=== PATIENT | female | born 1980 | race Caucasian/White ===

== ENCOUNTER 2016-07-23 15:42 | Emergency (ER) | payer OTHER ==
[2016-07-23 17:22] LABS: HEMOGLOBIN 14.8 gm/dl (12.3-15.3); RED BLOOD COUNT 5.28 M/UL (4.00-5.10); WHITE BLOOD COUNT 14.4 K/UL (4.5-11.0)
[2016-07-23 17:41] LABS: BUN/CREATININE RATIO 21 (0-10)
[2016-10-05] MEDS ORDERED: FLOVENT DISKUS50 MCG INH (07:51)
[2016-10-05] MEDS ORDERED: GLUCOTROL 10 MG10 MG PO (07:52)
[2016-10-05] MEDS ORDERED: IBUPROFEN400 MG PO (07:52)
[2016-10-05] MEDS ORDERED: NORCO 10-325 T1 EACH PO ×2 (07:52→13:47)
[2016-10-05] MEDS ORDERED: SINGULAIR10 MG PO (07:53)
[2016-10-05] MEDS ORDERED: VENTOLIN HFA 66.7 GM INH (07:54)
[2016-10-05] MEDS ORDERED: ZANTAC150 MG PO (07:55)
[2016-10-05] MEDS ORDERED: ZYRTEC10 MG PO (07:55)
== END 2016-07-23 20:25 | disposition home or self-care (01) ==
LOC: ER1 15:42
PROVIDERS: Emergency Medicine
DX: R10.11 Right upper quadrant pain (principal); R10.32 Left lower quadrant pain; E11.65 Type 2 diabetes mellitus with hyperglycemia; R19.7 Diarrhea, unspecified; R11.2 Nausea with vomiting, unspecified; R80.9 Proteinuria, unspecified; K76.0 Fatty (change of) liver, not elsewhere classified
CPT/HCPCS: 36415; 76705; 80053; 81001; 83690; 84703; 85025; 87086; 96361; 96374; 96375; 99284; J1200; J2765; J7030; J7050; Q9962

== ENCOUNTER 2016-07-27 10:40 | Emergency (ER) | payer OTHER ==
[2016-10-05] MEDS ORDERED: FLOVENT DISKUS50 MCG INH (07:51)
[2016-10-05] MEDS ORDERED: IBUPROFEN400 MG PO (07:52)
[2016-10-05] MEDS ORDERED: NORCO 10-325 T1 EACH PO ×2 (07:52→13:47)
[2016-10-05] MEDS ORDERED: GLUCOTROL 10 MG10 MG PO (07:52)
[2016-10-05] MEDS ORDERED: SINGULAIR10 MG PO (07:53)
[2016-10-05] MEDS ORDERED: VENTOLIN HFA 66.7 GM INH (07:54)
[2016-10-05] MEDS ORDERED: ZYRTEC10 MG PO (07:55)
[2016-10-05] MEDS ORDERED: ZANTAC150 MG PO (07:55)
== END 2016-07-27 13:30 | disposition home or self-care (01) ==
LOC: ER1 10:40
DX: S16.1XXA Strain of muscle, fascia and tendon at neck level, initial encounter (principal); E11.9 Type 2 diabetes mellitus without complications; J45.909 Unspecified asthma, uncomplicated; Z88.6 Allergy status to analgesic agent; Z91.040 Latex allergy status; V44.5XXA Car driver injured in collision with heavy transport vehicle or bus in traffic accident, initial encounter; Y93.89 Activity, other specified; Y92.410 Unspecified street and highway as the place of occurrence of the external cause; Z79.84 Long term (current) use of oral hypoglycemic drugs; Z79.899 Other long term (current) drug therapy
CPT/HCPCS: 70450; 72125; 73030; 99284

== ENCOUNTER 2016-07-30 20:37 | Emergency (ER) | payer OTHER ==
[2016-10-05] MEDS ORDERED: FLOVENT DISKUS50 MCG INH (07:51)
[2016-10-05] MEDS ORDERED: NORCO 10-325 T1 EACH PO ×2 (07:52→13:47)
[2016-10-05] MEDS ORDERED: IBUPROFEN400 MG PO (07:52)
[2016-10-05] MEDS ORDERED: GLUCOTROL 10 MG10 MG PO (07:52)
[2016-10-05] MEDS ORDERED: SINGULAIR10 MG PO (07:53)
[2016-10-05] MEDS ORDERED: VENTOLIN HFA 66.7 GM INH (07:54)
[2016-10-05] MEDS ORDERED: ZYRTEC10 MG PO (07:55)
[2016-10-05] MEDS ORDERED: ZANTAC150 MG PO (07:55)
== END 2016-07-30 22:15 | disposition home or self-care (01) ==
LOC: ER1 20:37
DX: S16.1XXA Strain of muscle, fascia and tendon at neck level, initial encounter (principal); S29.012A Strain of muscle and tendon of back wall of thorax, initial encounter; E11.9 Type 2 diabetes mellitus without complications; J45.909 Unspecified asthma, uncomplicated; G89.29 Other chronic pain; Z88.6 Allergy status to analgesic agent; Z91.040 Latex allergy status; Z79.891 Long term (current) use of opiate analgesic; V43.62XA Car passenger injured in collision with other type car in traffic accident, initial encounter; Y92.410 Unspecified street and highway as the place of occurrence of the external cause; Z79.84 Long term (current) use of oral hypoglycemic drugs; Z79.899 Other long term (current) drug therapy
CPT/HCPCS: 72040; 72072; 96372; 99284; J1885

== ENCOUNTER → 2016-08-20 | Outpatient (CLI) | payer OTHER ==
[~2016-08-20] MED LIST: FLOVENT DISKUS50 MCG INH; GLUCOTROL 10 MG10 MG PO; IBUPROFEN400 MG PO; NORCO 10-325 T1 EACH PO; SINGULAIR10 MG PO; VENTOLIN HFA 66.7 GM INH; ZANTAC150 MG PO; ZYRTEC10 MG PO
== END ==
LOC: NM 07-27 10:30
DX: R11.2 Nausea with vomiting, unspecified (principal); R14.0 Abdominal distension (gaseous); R93.2 Abnormal findings on diagnostic imaging of liver and biliary tract
CPT/HCPCS: 78227; A9537; J2805

== ENCOUNTER → 2016-10-05 | Day surgery (SDC) | payer OTHER ==
[~2016-10-05] VITALS: Ht 170.2 cm; Wt 113.4 kg
== END | disposition home or self-care (01) ==
LOC: OR 06:53
PROVIDERS: Surgery
PROC: 0FT44ZZ Resection of Gallbladder, Percutaneous Endoscopic Approach (ICD-10-PCS; principal; 2016-10-05 08:45)
DX: K81.1 Chronic cholecystitis (principal); E66.01 Morbid (severe) obesity due to excess calories; K21.9 Gastro-esophageal reflux disease without esophagitis; E11.9 Type 2 diabetes mellitus without complications; J45.909 Unspecified asthma, uncomplicated; M19.90 Unspecified osteoarthritis, unspecified site; G89.29 Other chronic pain; M54.9 Dorsalgia, unspecified; F41.9 Anxiety disorder, unspecified; Z68.41 Body mass index [BMI] 40.0-44.9, adult; Z86.010 Personal history of colon polyps; Z82.49 Family history of ischemic heart disease and other diseases of the circulatory system; Z88.8 Allergy status to other drugs, medicaments and biological substances; Z91.041 Radiographic dye allergy status; Z79.1 Long term (current) use of non-steroidal anti-inflammatories (NSAID); Z79.899 Other long term (current) drug therapy; Z98.890 Other specified postprocedural states
CPT/HCPCS: 82962; 84703; J0295; J1100; J1815; J2250; J2405; J2710; J2765; J3010; J7030; J7050; J7120

== ENCOUNTER → 2020-05-16 | Outpatient (CLI) | payer OTHER ==
[~2020-05-16] MED LIST changes: +ALDACTONE50 MG PO; +ALLERGY SHOT INJ; +ARAVA20 MG PO; +BASAGLAR K100 UNIT/1 SQ; +BENADRYL ALLERG25 MG PO; +BENTYL 20MG TAB20 MG PO; +BPM-DM-PHEN SY473 ML PO; +BREO ELLIPTA 21 EACH INH; +BUTALB-ACETAMI1 EAC1 PO; +FEOSOL325 MG PO; +FLUCONAZOLE150 MG PO; +FOLIC ACID 1 MG1 MG PO; +HUMALIN R SC; +IBU800 MG PO; +INSULIN LISPRO SQ; +KEFLEX500 MG PO; +LISINOPRIL10 MG PO; +LODINE CAP 300300 MG PO; +METHOTREXATE2.5 MG PO; +NASONEX17 GM; +NIACIN500 M1 PO; +NORFLEX 100 MG100 MG PO; +PEPCID40 MG PO; +PHENERGAN 12.12.5 M1 PO; +PRECOSE100 MG PO; +PREDNISONE 10 M10 MG PO; +PREDNISONE 50 M50 MG PO; +PREDNISONE5 MG PO; +PROGESTERONE200 MG PO; +PROTONIX40 MG PO; +ROBITUSSIN AC480 ML PO; +SYNTHROID75 MCG PO; +TESSALON PERLE100 MG PO; +TORADOL 10 MG T10 MG PO; +VIBRAMYCIN100 MG PO; +XYZAL5 MG PO; +ZANAFLEX4 M1 PO; +ZOFRAN ODT 4 MG4 MG SL; +ZOFRAN4 MG PO
== END ==
LOC: KOH-I 14:48
DX: M25.561 Pain in right knee (principal); G89.29 Other chronic pain; M25.512 Pain in left shoulder; M17.11 Unilateral primary osteoarthritis, right knee
CPT/HCPCS: 73030; 73562

== ENCOUNTER → 2020-08-26 | Outpatient (CLI) | payer OTHER | LOC: KOH-I 11:05 | DX: M79.671 Pain in right foot (principal); Z98.890 Other specified postprocedural states | CPT/HCPCS: 73630 ==

== ENCOUNTER → 2020-09-09 | Outpatient (CLI) | payer OTHER | LOC: KOH-I 10:28 | DX: T84.84XA Pain due to internal orthopedic prosthetic devices, implants and grafts, initial encounter (principal); M77.41 Metatarsalgia, right foot | CPT/HCPCS: 73700 ==

== ENCOUNTER → 2020-11-26 | Outpatient (CLI) | payer OTHER | LOC: HEART 5 14:19 | DX: R09.02 Hypoxemia (principal) | CPT/HCPCS: 71046; 94010 ==

== ENCOUNTER → 2020-11-27 | Outpatient (CLI) | payer OTHER | LOC: SLEEP 14:47 | DX: G47.30 Sleep apnea, unspecified (principal) | CPT/HCPCS: 95810 ==

== ENCOUNTER → 2020-11-27 | Outpatient (CLI) | payer OTHER | LOC: RT 11:18 → LAB 11:18 | DX: R09.02 Hypoxemia (principal) | CPT/HCPCS: 36600; 82803 ==

== ENCOUNTER → 2020-12-03 | Outpatient (CLI) | payer OTHER | LOC: KOH-I 10:00 | DX: Z86.16 Personal history of COVID-19 (principal); R91.8 Other nonspecific abnormal finding of lung field | CPT/HCPCS: 71250 ==

== ENCOUNTER → 2021-02-02 | Outpatient (CLI) | payer OTHER | LOC: KOH-I 10:30 | DX: M79.604 Pain in right leg (principal) | CPT/HCPCS: 93971 ==

== ENCOUNTER → 2021-04-10 | Outpatient (CLI) | payer OTHER | LOC: KOH-I 09:43 | DX: M79.671 Pain in right foot (principal) | CPT/HCPCS: 73630 ==

== ENCOUNTER → 2021-05-27 | Outpatient (CLI) | payer OTHER | LOC: SLEEP 12:57 | DX: G47.33 Obstructive sleep apnea (adult) (pediatric) (principal); G47.10 Hypersomnia, unspecified | CPT/HCPCS: 95811 ==

== ENCOUNTER → 2021-09-07 | Outpatient (CLI) | payer OTHER ==
[~2021-09-07] MED LIST changes: +CEPHALEXIN500 M1 PO; +DIFLUCAN150 MG PO
== END ==
LOC: KOH-I 09:27
DX: M79.671 Pain in right foot (principal)
CPT/HCPCS: 73630

== ENCOUNTER 2021-09-10 17:59 | Emergency (ER) | payer OTHER ==
[~2021-09-10 17:59] MED LIST changes: -CEPHALEXIN500 M1 PO; -DIFLUCAN150 MG PO
[2021-09-10 19:37] LABS: HEMOGLOBIN 14.3 gm/dl (12.3-15.3); RED BLOOD COUNT 4.64 M/UL (4.00-5.10); WHITE BLOOD COUNT 9.2 K/UL (4.5-11.0)
[2021-09-10 20:05] LABS: BUN/CREATININE RATIO 19 (0-10)
[2021-09-10] MEDS ORDERED: CEPHALEXIN500 M1 PO (22:47)
[2021-09-10] MEDS ORDERED: DIFLUCAN150 MG PO (22:47)
== END 2021-09-11 00:04 | disposition home or self-care (01) ==
LOC: ER1 17:59
PROVIDERS: Emergency Medicine
DX: E10.65 Type 1 diabetes mellitus with hyperglycemia (principal); G43.909 Migraine, unspecified, not intractable, without status migrainosus; N39.0 Urinary tract infection, site not specified; B37.3 Candidiasis of vulva and vagina; E78.5 Hyperlipidemia, unspecified; K21.9 Gastro-esophageal reflux disease without esophagitis; J45.909 Unspecified asthma, uncomplicated; I10 Essential (primary) hypertension; Z88.8 Allergy status to other drugs, medicaments and biological substances
CPT/HCPCS: 80053; 81001; 82009; 82803; 83690; 85025; 96374; 96375; 99284; J1200; J1885; J2405; J2765; J7030

== ENCOUNTER → 2021-09-16 | Outpatient (CLI) | payer OTHER ==
[~2021-09-16] MED LIST changes: +CEPHALEXIN500 M1 PO; +DIFLUCAN150 MG PO
== END ==
LOC: KOH-I 09-14 09:45
DX: S96.011A Strain of muscle and tendon of long flexor muscle of toe at ankle and foot level, right foot, initial encounter (principal)
CPT/HCPCS: 73718

== ENCOUNTER 2021-11-12 17:57 | Emergency (ER) | payer OTHER ==
[2021-11-12 18:32] LABS: HEMOGLOBIN 14.7 gm/dl (12.3-15.3); RED BLOOD COUNT 4.77 M/UL (4.00-5.10); WHITE BLOOD COUNT 8.5 K/UL (4.5-11.0)
[2021-11-12 19:00] LABS: BUN/CREATININE RATIO 14 (0-10)
[2021-11-12] MEDS ORDERED: LANTUS INS100 UTS/M1 SQ (19:38)
== END 2021-11-12 20:40 | disposition home or self-care (01) ==
LOC: ER1 17:57
PROVIDERS: Student in an Organized Health Care Education/Training Program
DX: E11.65 Type 2 diabetes mellitus with hyperglycemia (principal); E87.6 Hypokalemia; G89.29 Other chronic pain; R51.9 Headache, unspecified; F11.20 Opioid dependence, uncomplicated; I10 Essential (primary) hypertension; Z79.4 Long term (current) use of insulin
CPT/HCPCS: 80053; 82009; 85025; 99284

== ENCOUNTER 2021-11-19 21:41 | Emergency (ER) | payer OTHER ==
[~2021-11-19 21:41] MED LIST changes: +LANTUS INS100 UTS/M1 SQ
[2021-11-20] MEDS ORDERED: ROBAXIN 750 MG750 MG PO (02:15)
== END 2021-11-20 02:20 | disposition home or self-care (01) ==
LOC: ER1 21:41
DX: S13.4XXA Sprain of ligaments of cervical spine, initial encounter (principal); E11.9 Type 2 diabetes mellitus without complications; Y04.2XXA Assault by strike against or bumped into by another person, initial encounter; Y92.009 Unspecified place in unspecified non-institutional (private) residence as the place of occurrence of the external cause
CPT/HCPCS: 70450; 71045; 72125; 96374; 96375; 99284; J1885; J2270